=== PATIENT | female | born 2000 | race Caucasian/White ===

== ENCOUNTER 2022-06-14 18:22 | Observation (INO) ==
[2022-06-14] MEDS ORDERED: SODIUM CHLORIDE 0.9% 1000ML 1,000 ML IV ONE (18:56)
[2022-06-14] MEDS ORDERED: ONDANSETRON INJ 2 MG/ML 2 ML VIAL IV STA (18:56)
[2022-06-14] MEDS: MoRPHine SULFATE 4 MG/ML 1 ML CARP\\VIAL IV STA (19:11)
[2022-06-14 19:22] LABS: Basophils # (auto) 0.08 K/uL (0-0.2); Basophils % (auto) 0.4 %; Eosinophils # (auto) 0.15 K/uL (0-0.50); Eosinophils % (auto) 0.7 %; Hematocrit (blood only) 37.3 % (34.1-44.9); Hemoglobin 12.3 g/dl (12.0-16.0); Immature Granulocytes # (auto) 0.19 K/uL (0.00-0.02); Immature Granulocytes % (auto) 0.9 %; Lymphocytes # (auto) 1.74 K/uL (1.2-3.4); Mean Corpuscular Hemoglobin 30.4 pg (25.0-34.0); Mean Corpuscular Volume 92.3 fL (80.0-100.0); Mean Platelet Volume 9.3 fL (9.4-12.3); Monocytes # (auto) 1.25 K/uL (0.24-0.82); Monocytes % (auto) 5.8 %; Neutrophils # (auto) 18.32 K/uL (1.4-6.5); Neutrophils % (auto) 84.2 %; Platelet Count 333 K/uL (130-400); RDW Coefficient of Variation 13.1 % (11.5-14.5); RDW Standard Deviation 43.9 fL (36.4-46.3); Red Blood Count 4.04 M/uL (3.93-5.22); White Blood Count 21.73 K/ul (4.8-10.8)
[2022-06-14 19:46] LABS: BUN Creatinine Ratio 14.3 (10-20); Calcium 9.5 mg/dl (8.5-10.1); Creatinine Clr Calc Pharmacy 112.7 ml/min; Est GFR (African American) 149.7 ml/min; Est GFR (Non-African American) 129.1 ml/min; Potassium 3.4 mmol/L (3.5-5.1)
[2022-06-14] MEDS ORDERED: MoRPHine SULFATE 4 MG/ML 1 ML CARP\\VIAL IV STA (20:18)
[2022-06-14] MEDS ORDERED: OPTIRAY 350 100ml IV ONE (20:32)
[2022-06-14] MEDS ORDERED: HYDROmorphone INJ 0.5 MG/0.5 ML SYR IV STA (21:22)
--- NOTE | 2022-06-14 21:41 | CT Scan Report ---
CT SCAN OF THE PELVIS WITH IV CONTRAST CLINICAL HISTORY: Pelvic infection. Assess for abscess. COMPARISON STUDY: No priors. TECHNIQUE: Following the IV administration of 87 cc of Optiray 350, CT scan of the pelvis is perform ed from the pelvic inlet to the proximal femora. Images are reviewed in the axial, sagittal, and quinten nal planes. IV contrast was administered without complication. A dose lowering technique was utilize d adhering to the principles of ALARA. CT DOSE: 270.97 mGy.cm FINDINGS: The bladder, uterus, and adnexa are normal as visualized noting bilateral ovarian follicles. There is free fluid in the cul-de-sac. Imaged portions of the small bowel and colon are normal in caliber. Mo derate fecal retention is noted throughout the imaged colon. A normal appendix is seen in the right l ower quadrant. The iliac vessels are patent bilaterally. Prominent left pelvic sidewall and internal iliac chain nodes measure up to 1.0 cm in short axis. These are likely reactive. There is extensive soft tissue inflammation identified in the left groin with overlying dermal thicke fidel. This is consistent with cellulitis. There is a hyperemic and necrotic lymph node in the left gr oin seen on image #513. The necrotic component/developing fluid collection measures 3.8 x 3.1 x 2.4 c m as seen on image #522. Additional prominent hyperemic lymph nodes are seen in the left groin. Infla mmation extends into the perineum/vulva bilaterally (left greater than right). No deep perineal soft tissue gas is seen. The bony pelvis is intact. No lytic or blastic lesion is seen. The hips and sacroiliac joints are nor mal. There is myositis of the left adductor musculature. IMPRESSION: 1. Cellulitis of the left groin extending into the vulva and perineal soft tissues bilaterally. 2. There is a necrotic lymph node in the left groin with a 3.8 cm loculation of necrotic fluid/develo ping abscess. 3. Prominent left iliac chain and pelvic sidewall lymph nodes are likely reactive. 4. Free fluid in the cul-de-sac is likely within physiologic limits. 5. No perineal soft tissue gas is seen. 6. There is myositis of the left adductor musculature. ACT 112: Negative or not required by law. Electronically signed by: Werner Craft M.D. 06/14/2022 9:38 PM
[2022-06-14] MEDS ORDERED: VANCOMYCIN CONSULT ACTIVE PRN (21:53)
[2022-06-14] MEDS ORDERED: cefTRIAXone SODIUM 2,000 MG/70 ML BAG IV STA (21:53)
[2022-06-14] MEDS ORDERED: LORazepam 0.5 MG TAB PO PRN (21:53)
[2022-06-14] MEDS ORDERED: VANCOMYCIN HCL 1,000 MG in SODIUM CHLORIDE 0.9% 500 ML IV ONE (21:53)
--- NOTE | 2022-06-14 22:31 | History & Physical Report ---
Date of Service June 14, 2022 Assessment & Plan (1) LGV (lymphogranuloma venereum): Plan: Currently patient was being treated outpatient for the suspected diagnosis of LGV. However more common in patients who are men who have sex with men, and tropical climates. More unlikely this is not the diagnosis at this time as patient is also been screened and found to be chlamydia negative. At this time the suspected necrotic lymph node, in the groin is not in my expertise to thoroughly I+D this area. Therefore I am placing a general surgery consult to evaluate the patient as well. In the meantime for preventing sepsis I will start the patient on IV Rocephin, metronidazole and vancomycin. 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 She had gone home during the holiday and was sexually active, and noted an increase in left groin pain afterwards. She then shaved in that area several days ago, and noted increasing pain and discomfort over the left groin. 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 However over the last several days symptoms became progressively worse She denies fevers, chills, SOB or chest pain Patient History Social History Smoking Status: Never smoker Feels Safe at Home: Yes OB History G0 [employer] History Recent sexual activity, no on control. Planning to start tomorrow Review of Systems All systems reviewed & are unremarkable except as noted in HPI & below Physical Exam Constitutional: WD/WN, vitals as above Respiratory: normal respiratory effort, lungs clear to auscultation Cardiovascular: RRR, no murmur, no edema Gastrointestinal (Abdomen): normal bowel sounds, soft, nontender, no hepatosplenomegaly Genitourinary: Erythematous over left groin extending down into left labia, firm, tender Right groin and labia majora normal Patient declined further pelvic and speculum exam, due to discomfort Results & Data ([facility]) Vital Signs (Past 12 Hours) Vital Signs Temp Pulse Pulse Resp BP BP Pulse Ox 06/14/22 22:01 70 20 98 06/14/22 21:32 15 98 06/14/22 20:10 97 H 19 06/14/22 20:00 125 H 21 06/14/22 19:50 109 H 23 06/14/22 19:40 85 15 100 06/14/22 19:30 98 H 23 100 06/14/22 19:20 99 H 15 100 06/14/22 19:10 96 H 15 100 06/14/22 19:00 114 H 17 06/14/22 19:00 145/95 H 06/14/22 18:50 104 H 22 100 06/14/22 18:49 109 H 17 06/14/22 18:49 149/92 H 06/14/22 19:32 107 H 20 97 06/14/22 18:50 107 H 20 149/92 H 100 06/14/22 18:25 36.8 C 117 H 18 133/84 100 O2 Del Method 06/14/22 22:01 Room Air 06/14/22 21:32 06/14/22 20:10 06/14/22 20:00 06/14/22 19:50 06/14/22 19:40 06/14/22 19:30 06/14/22 19:20 06/14/22 19:10 06/14/22 19:00 06/14/22 19:00 06/14/22 18:50 06/14/22 18:49 06/14/22 18:49 06/14/22 19:32 Room Air 06/14/22 18:50 Room Air 06/14/22 18:25 Room Air Laboratory Results Laboratory Results WBC 21.73 K/ul (4.8-10.8) H 06/14/22 19:08 RBC 4.04 M/uL (3.93-5.22) 06/14/22 19:08 Hgb 12.3 g/dl (12.0-16.0) 06/14/22 19:08 Hct 37.3 % (34.1-44.9) 06/14/22 19:08 MCV 92.3 fL (80.0-100.0) 06/14/22 19:08 MCH 30.4 pg (25.0-34.0) 06/14/22 19:08 MCHC 33.0 g/dL (32.0-36.0) 06/14/22 19:08 RDW Std Deviation 43.9 fL (36.4-46.3) 06/14/22 19:08 RDW Coeff of Jerardo 13.1 % (11.5-14.5) 06/14/22 19:08 Plt Count 333 K/uL (130-400) 06/14/22 19:08 MPV 9.3 fL (9.4-12.3) L 06/14/22 19:08 Immature Gran % (Auto) 0.9 % 06/14/22 19:08 Neut % (Auto) 84.2 % 06/14/22 19:08 Lymph % (Auto) 8.0 % 06/14/22 19:08 Shackelford % (Auto) 5.8 % 06/14/22 19:08 Eos % (Auto) 0.7 % 06/14/22 19:08 Baso % (Auto) 0.4 % 06/14/22 19:08 Neut # (Auto) 18.32 K/uL (1.4-6.5) H 06/14/22 19:08 Lymph # (Auto) 1.74 K/uL (1.2-3.4) 06/14/22 19:08 Shackelford # (Auto) 1.25 K/uL (0.24-0.82) H 06/14/22 19:08 Eos # (Auto) 0.15 K/uL (0-0.50) 06/14/22 19:08 Baso # (Auto) 0.08 K/uL (0-0.2) 06/14/22 19:08 Immature Gran # (Auto) 0.19 K/uL (0.00-0.02) H 06/14/22 19:08 Sodium 139 mmol/L (136-145) 06/14/22 19:08 Potassium 3.4 mmol/L (3.5-5.1) L 06/14/22 19:08 Chloride 104 mmol/L (98-107) 06/14/22 19:08 Carbon Dioxide 24 mmol/L (21-32) 06/14/22 19:08 Anion Gap 11 (3-11) 06/14/22 19:08 BUN 9 mg/dl (6-23) 06/14/22 19:08 Creatinine 0.63 mg/dl (0.6-1.2) 06/14/22 19:08 Est Cr Clr Drug Dosing 112.7 ml/min 06/14/22 19:08 Est GFR ( Amer) 149.7 ml/min 06/14/22 19:08 Est GFR (Non-Af Amer) 129.1 ml/min 06/14/22 19:08 BUN/Creatinine Ratio 14.3 (10-20) 06/14/22 19:08 Glucose 80 mg/dl (70-99(Fasting)) 06/14/22 19:08 Calcium 9.5 mg/dl (8.5-10.1) 06/14/22 19:08 Impressions Diagnostic Findings Pelvis CT 06/14/22 18:54 CT SCAN OF THE PELVIS WITH IV CONTRAST CLINICAL HISTORY: Pelvic infection. Assess for abscess. COMPARISON STUDY: No priors. TECHNIQUE: Following the IV administration of 87 cc of Optiray 350, CT scan of the pelvis is performed from the pelvic inlet to the proximal femora. Images are reviewed in the axial, sagittal, and coronal planes. IV contrast was administered without complication. A dose lowering technique was utilized adhering to the principles of ALARA. CT DOSE: 270.97 mGy.cm FINDINGS: The bladder, uterus, and adnexa are normal as visualized noting bilateral ovarian follicles. There is free fluid in the cul-de-sac. Imaged portions of the small bowel and colon are normal in caliber. Moderate fecal retention is noted throughout the imaged colon. A normal appendix is seen in the right lower quadrant. The iliac vessels are patent bilaterally. Prominent left pelvic sidewall and internal iliac chain nodes measure up to 1.0 cm in short axis. These are likely reactive. There is extensive soft tissue inflammation identified in the left groin with o verlying dermal thickening. This is consistent with cellulitis. There is a hyperemic and necrotic lymph node in the left groin seen on image #513. The necrotic component/developing fluid collection measures 3.8 x 3.1 x 2.4 cm as seen on image #522. Additional prominent hyperemic lymph nodes are seen in the left groin. Inflammation extends into the perineum/vulva bilaterally (left greater than right). No deep perineal soft tissue gas is seen. The bony pelvis is intact. No lytic or blastic lesion is seen. The hips and sacroiliac joints are normal. There is myositis of the left adductor muscula ture. IMPRESSION: 1. Cellulitis of the left groin extending into the vulva and perineal soft tissues bilaterally. 2. There is a necrotic lymph node in the left groin with a 3.8 cm loculation of necrotic fluid/developing abscess. 3. Prominent left iliac chain and pelvic sidewall lymph nodes are likely reactive. 4. Free fluid in the cul-de-sac is likely within physiologic limits. 5. No perineal soft tissue gas is seen. 6. There is myositis of the left adductor musculature. ACT 112: Negative or not required by law. Electronically signed by: Werner Craft M.D. 06/14/2022 9:38 PM
[2022-06-14] MEDS: LACTATED RINGER'S 1,000 ML IV SCH (23:46)
[2022-06-14] MEDS: ACETAMINOPHEN 325 MG TAB PO PRN (23:54)
[2022-06-15] MEDS ORDERED: oxyCODONE/ACETAMINOPHEN 5mg/325mg TAB PO PRN (00:18)
--- NOTE | 2022-06-15 00:26 | Emergency Department Note ---
History of Present Illness General Chief complaint: Infection Stated complaint: INFECTED LYMPH NODE, REF BY URGENT CARE Time Seen by Provider: 06/14/22 18:44 History of Present Illness Provider complaint: Groin pain infected lymph node Onset (ago): week(s) 1 Location: genitals Current Pain Intensity: 9 Quality: + stabbing, + aching, + sharp and + dull Associated symptoms: + rash; no fever/chills 21-year-old female presents emergency department for groin pain and infected lymph node. Patient reports she has left genital and groin pain. Patient states her symptoms began 1 week ago. Patient states that on May 30 she engaged in sexual intercourse with a new partner. Patient states she was intoxicated and is not sure if protection was used. Patient states over the last week her groin and vulvar area became more swollen and red. Patient reports that she did shave her genital and vulvar region on Wednesday which lead to increasing redness and swelling. Patient denies any fevers. She denies any vaginal discharge. Patient states she was seen by [facility] [employer]NA[employer] and placed on antibiotic doxycycline on Wednesday. Patient reports the swelling redness and pain have increased since then so she came to the emergency department. Home Medications Medication Instructions Recorded Confirmed Type bupropion HCl 300 mg 24 hr tablet, 300 mg PO 1XD 06/15/22 06/15/22 History extended release lisdexamfetamine 20 mg capsule 20 mg PO 1XD 06/15/22 06/15/22 History (Vyvanse) Allergies Allergy/AdvReac Type Severity Reaction Status Date / Time pollen extracts Allergy Sneezing Verified 06/15/22 00:03 Past Med/Surg History Medical History No pertinent family history No pertinent past medical history Surgical History No pertinent past surgical history Social History Smoking Status: Never smoker Second Hand Exposure: No; Do You Dip or Chew Tobacco: No; Hx Alcohol Use: No Hx Substance Use: No Preferred Language: Amharic Ethics Instructor Required: No Beliefs That Will Affect Care: None Current Living Situation: Other Current Living Situation Comment: campus; 2 roommates. Other Information That Helps Us Care for You: No Feels Safe at Home: Yes Safety Concerns: Feels Safe At This Time Assistive Devices: None Physical Exam Vital Signs Vital Signs - 24 hr 06/14/22 18:25 06/14/22 18:50 06/14/22 19:32 Temperature 36.8 C Temperature Source Oral Pulse Rate 117 H 107 H Pulse Rate [Apical] 107 H Pulse Rate from SpO2 Sensor Pulse Rhythm Regular Pulse Rhythm [Apical] Regular Pulse Strength [Apical] Normal Respiratory Rate 18 20 20 Respiratory Effort / Characteristics Non-Labored Spontaneous Respiratory Depth Normal Respiratory Pattern Regular Blood Pressure 133/84 Blood Pressure [Right Arm] 149/92 H Blood Pressure Mean 100 Blood Pressure Mean [Right Arm] 111 Pulse Oximetry 100 100 97 Oxygen Delivery Method Room Air Room Air Room Air Sepsis Recent Fever Within 48 Hours No Sepsis New/Unexplained Change in Mental Status No Sepsis Action Taken by Nursing No Action Required 06/14/22 18:49 06/14/22 18:49 06/14/22 18:50 Temperature Temperature Source Pulse Rate 109 H 104 H Pulse Rate [Apical] Pulse Rate from SpO2 Sensor 105 H Pulse Rhythm Pulse Rhythm [Apical] Pulse Strength [Apical] Respiratory Rate 17 22 Respiratory Effort / Characteristics Respiratory Depth Respiratory Pattern Blood Pressure 149/92 H Blood Pressure [Right Arm] Blood Pressure Mean 111 Blood Pressure Mean [Right Arm] Pulse Oximetry 100 Oxygen Delivery Method Sepsis Recent Fever Within 48 Hours Sepsis New/Unexplained Change in Mental Status Sepsis Action Taken by Nursing 06/14/22 19:00 06/14/22 19:00 06/14/22 19:10 Temperature Temperature Source Pulse Rate 114 H 96 H Pulse Rate [Apical] Pulse Rate from SpO2 Sensor 99 H Pulse Rhythm Pulse Rhythm [Apical] Pulse Strength [Apical] Respiratory Rate 17 15 Respiratory Effort / Characteristics Respiratory Depth Respiratory Pattern Blood Pressure 145/95 H Blood Pressure [Right Arm] Blood Pressure Mean 111 Blood Pressure Mean [Right Arm] Pulse Oximetry 100 Oxygen Delivery Method Sepsis Recent Fever Within 48 Hours Sepsis New/Unexplained Change in Mental Status Sepsis Action Taken by Nursing 06/14/22 19:20 06/14/22 19:30 06/14/22 19:40 Temperature Temperature Source Pulse Rate 99 H 98 H 85 Pulse Rate [Apical] Pulse Rate from SpO2 Sensor 95 H 98 H 84 Pulse Rhythm Pulse Rhythm [Apical] Pulse Strength [Apical] Respiratory Rate 15 23 15 Respiratory Effort / Characteristics Respiratory Depth Respiratory Pattern Blood Pressure Blood Pressure [Right Arm] Blood Pressure Mean Blood Pressure Mean [Right Arm] Pulse Oximetry 100 100 100 Oxygen Delivery Method Sepsis Recent Fever Within 48 Hours Sepsis New/Unexplained Change in Mental Status Sepsis Action Taken by Nursing 06/14/22 19:50 06/14/22 20:00 06/14/22 20:10 Temperature Temperature Source Pulse Rate 109 H 125 H 97 H Pulse Rate [Apical] Pulse Rate from SpO2 Sensor Pulse Rhythm Pulse Rhythm [Apical] Pulse Strength [Apical] Respiratory Rate 23 21 19 Respiratory Effort / Characteristics Respiratory Depth Respiratory Pattern Blood Pressure Blood Pressure [Right Arm] Blood Pressure Mean Blood Pressure Mean [Right Arm] Pulse Oximetry Oxygen Delivery Method Sepsis Recent Fever Within 48 Hours Sepsis New/Unexplained Change in Mental Status Sepsis Action Taken by Nursing 06/14/22 21:32 06/14/22 21:40 Temperature Temperature Source Pulse Rate Pulse Rate [Apical] Pulse Rate from SpO2 Sensor 106 H 102 H Pulse Rhythm Pulse Rhythm [Apical] Pulse Strength [Apical] Respiratory Rate 15 Respiratory Effort / Characteristics Respiratory Depth Respiratory Pattern Blood Pressure Blood Pressure [Right Arm] Blood Pressure Mean Blood Pressure Mean [Right Arm] Pulse Oximetry 98 97 Oxygen Delivery Method Sepsis Recent Fever Within 48 Hours Sepsis New/Unexplained Change in Mental Status Sepsis Action Taken by Nursing Physical Exam GENERAL: Patient is crying due to pain. CV: Tachycardic rate, regular rhythm, normal heart sounds and intact distal pulses. There is no peripheral edema. Palpable radial pulses bue. PULM/CHEST: Effort normal and breath sounds normal. No respiratory distress. No stridor. She has no wheezes. She has no rales. ABD: The abdomen is soft. : Conducted with female nursing marbleizing machine tender Maria Eugenia at bedside. The patient has an erythematous vulvar area that radiates into her suprapubic area. The area is warm to touch painful to touch and feels fluctuant and hard in areas. The swelling and erythema extend down to superior area just above the left labia however does not extend down into the left labia. LYMPH: Left inguinal adenopathy. Course Course 1843: The patient was evaluated in room B7. A complete history and physical exam was performed Cardiac monitoring: An order was placed for continuous cardiac monitoring. The monitor shows a rate of 100 with sinus rhythm Concern for abscess versus cellulitis. No necrotic black lesion lower concern for Ian's. Patient will be ordered labs pain medication IV fluids. Debating versus CT versus ultrasound to leaning towards CT to see if there is a true abscess there and to measure the dimensions of the potential abscess. Will contact [employer] and see if they have a preference of CT versus ultrasound. 1859: Spoke with [facility] [employer] MANAGER Dr. Mancera who states she is okay with the CT being conducted on this patient. 2100: External medical records reviewed, nurse outreach case manager Lola was able to obtain outpatient [employer] records from [employer] system. Patient was seen in the emergency department for days ago on June 10, [address] 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 0: Vital signs stable. Labs show leukocytosis of 21.7. CT shows cellulitis of the left groin extending into the lower perianal soft tissues bilaterally. There is a necrotic lymph node in the left groin within 3.8 cm loculation of necrotic fluid/developing abscess and prominent left iliac chain and pelvic sidewall lymph nodes. Patient is required multiple doses of analgesia due to her pain. Discussed the case with Dr. Mancera who states she will evaluate the patient for admission and she will place orders for antibiotics. Administered Medications Acetaminophen (Acetaminophen 325 Mg Tab) 650 mg PO Q4H PRN PRN Reason: Pain or Fever Stop: 07/14/22 21:52 Last Admin: 06/14/22 23:54 Dose: 650 mg Documented By: JORDAN Lactated Ringer's (Lr) 1,000 mls @ 125 mls/hr IV .Q8H OPAL Stop: 07/14/22 21:59 Last Admin: 06/14/22 23:46 Dose: 125 mls/hr Documented By: JORDNA Vancomycin HCl 1,000 mg/ (Sodium Chloride) 520 mls @ 200 mls/hr IV NOW ONE Stop: 06/15/22 00:28 Last Admin: 06/14/22 22:30 Dose: 200 mls/hr Documented By: BERTA Discontinued Medications Hydromorphone HCl (Hydromorphone Inj 0.5 Mg/0.5 Ml Syr) 0.5 mg IV NOW STA Stop: 06/14/22 21:23 Last Admin: 06/14/22 21:25 Dose: 0.5 mg Documented By: BERTA Sodium Chloride (Nss 1000ml) 1,000 mls @ 999 mls/hr IV .Q1H1M ONE Stop: 06/14/22 19:56 Last Infusion: 06/14/22 20:16 Dose: 0 mls/hr Documented By: Admin: 06/14/22 19:11 Dose: 999 mls/hr Documented By: BERTA Ceftriaxone Sodium (Rocephin) 2,000 mg in 70 mls @ 140 mls/hr IV NOW STA Stop: 06/14/22 22:22 Last Infusion: 06/14/22 22:44 Dose: 0 mls/hr Documented By: Admin: 06/14/22 22:06 Dose: 140 mls/hr Documented By: BERTA Ioversol (Optiray 350 100ml) 87 ml IV ONCE ONE Stop: 06/14/22 20:33 Last Admin: 06/14/22 20:32 Dose: 87 ml Documented By: BELINDA Morphine Sulfate (Morphine Sulfate 4 Mg/Ml 1 Ml Carp\Vial) 4 mg IV NOW STA Stop: 06/14/22 18:57 Last Admin: 06/14/22 19:11 Dose: 4 mg Documented By: Admin: 06/14/22 19:11 Dose: 4 mg Documented By: BERTA Morphine Sulfate (Morphine Sulfate 4 Mg/Ml 1 Ml Carp\Vial) 4 mg IV NOW STA Stop: 06/14/22 20:19 Last Admin: 06/14/22 20:20 Dose: 4 mg Documented By: BERTA Ondansetron HCl (Ondansetron Inj 2 Mg/Ml 2 Ml Vial) 4 mg IV NOW STA Stop: 06/14/22 18:57 Last Admin: 06/14/22 19:11 Dose: 4 mg Documented By: BERTA Medical Decision Making Laboratory Data Attestation: I reviewed the patient's lab results. 06/14/22 19:08 06/14/22 19:08 Lab Results 06/14/22 06/14/22 Range/Units 19:08 19:08 WBC 21.73 H (4.8-10.8) K/ul RBC 4.04 (3.93-5.22) M/uL Hgb 12.3 (12.0-16.0) g/dl Hct 37.3 (34.1-44.9) % MCV 92.3 (80.0-100.0) fL MCH 30.4 (25.0-34.0) pg MCHC 33.0 (32.0-36.0) g/dL RDW Std Deviation 43.9 (36.4-46.3) fL RDW Coeff of Jerardo 13.1 (11.5-14.5) % Plt Count 333 (130-400) K/uL MPV 9.3 L (9.4-12.3) fL Immature Gran % (Auto) 0.9 % Neut % (Auto) 84.2 % Lymph % (Auto) 8.0 % Burke % (Auto) 5.8 % Eos % (Auto) 0.7 % Baso % (Auto) 0.4 % Neut # (Auto) 18.32 H (1.4-6.5) K/uL Lymph # (Auto) 1.74 (1.2-3.4) K/uL Burke # (Auto) 1.25 H (0.24-0.82) K/uL Eos # (Auto) 0.15 (0-0.50) K/uL Baso # (Auto) 0.08 (0-0.2) K/uL Immature Gran # (Auto) 0.19 H (0.00-0.02) K/uL Sodium 139 (136-145) mmol/L Potassium 3.4 L (3.5-5.1) mmol/L Chloride 104 (98-107) mmol/L Carbon Dioxide 24 (21-32) mmol/L Anion Gap 11 (3-11) BUN 9 (6-23) mg/dl Creatinine 0.63 (0.6-1.2) mg/dl Est Cr Clr Drug Dosing 112.7 ml/min Est GFR ( Amer) 149.7 ml/min Est GFR (Non-Af Amer) 129.1 ml/min BUN/Creatinine Ratio 14.3 (10-20) Glucose 80 (70-99(Fasting)) mg/dl Calcium 9.5 (8.5-10.1) mg/dl Imaging Data Radiologist's Impression: Pelvis CT 06/14/22 18:54 CT SCAN OF THE PELVIS WITH IV CONTRAST CLINICAL HISTORY: Pelvic infection. Assess for abscess. COMPARISON STUDY: No priors. TECHNIQUE: Following the IV administration of 87 cc of Optiray 350, CT scan of the pelvis is performed from the pelvic inlet to the proximal femora. Images are reviewed in the axial, sagittal, and coronal planes. IV contrast was admini stered without complication. A dose lowering technique was utilized adhering to the principles of ALARA. CT DOSE: 270.97 mGy.cm FINDINGS: The bladder, uterus, and adnexa are normal as visualized noting bilateral ovarian follicles. There is free fluid in the cul-de-sac. Imaged portions of the small bowel and colon are normal in caliber. Moderate fecal retention is noted throughout the imaged colon. A normal appendix is seen in the right lower quadrant. The iliac vessels are patent bilaterally. Prominent left pelvic s idewall and internal iliac chain nodes measure up to 1.0 cm in short axis. These are likely reactive. There is extensive soft tissue inflammation identified in the left groin with overlying dermal thickening. This is consistent with cellulitis. There is a hyperemic and necrotic lymph node in the left groin seen on image #513. The necrotic component/developing fluid collection measures 3.8 x 3.1 x 2.4 cm as seen on image #522. Additional prominent hyperemic lymph nodes are seen in the left groin. Inflammation extends into the perineum/vulva bilaterally (left greater than right). No deep perineal soft tissue gas is seen. The bony pelvis is intact. No lytic or blastic lesion is seen. The hips and sacroiliac joints are normal. There is myositis of the left adductor musculature. IMPRESSION: 1. Cellulitis of the left groin extending into the vulva and perineal soft tissues bilaterally. 2. There is a necrotic lymph node in the left groin with a 3.8 cm loculation of necrotic fluid/developing abscess. 3. Prominent left iliac chain and pelvic sidewall lymph nodes are likely reactive. 4. Free fluid in the cul-de-sac is likely within physiologic limits. 5. No perineal soft tissue gas is seen. 6. There is myositis of the left adductor musculature. ACT 112: Negative or not required by law. Electronically signed by: Werner Craft M.D. 06/14/2022 9:38 PM [facility] [place] Narrative 1844: The patient was evaluated in room B7. A complete history and physical exam was performed Cardiac monitoring: An order was placed for continuous cardiac monitoring. The monitor shows a rate of 100 with sinus rhythm Concern for abscess versus cellulitis. No necrotic black lesion lower concern for Ian's. Patient will be ordered labs pain medication IV fluids. Debating versus CT versus ultrasound to leaning towards CT to see if there is a true abscess there and to measure the dimensions of the potential abscess. Will contact [employer] MANAGER and see if they have a preference of CT versus ultrasound. 1859: Spoke with [facility] [employer] MANAGER Dr. Mancera who states she is okay with the CT be ing conducted on this patient. 2100: External medical records reviewed, nurse outreach case manager Lola was able to obtain outpatient [employer] MA[employer] records from [employer]. Patient was seen in the emergency department for days ago on June 10, [address] 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 2199: Vital signs stable. Labs show leukocytosis of 21.7. CT shows cellulitis of the left groin extending into the lower perianal soft tissues bilaterally. There is a necrotic lymph node in the left groin within 3.8 cm loculation of necrotic fluid/developing abscess and prominent left iliac chain and pelvic sidewall lymph nodes. Patient is required multiple doses of analgesia due to her pain. Discussed the case with Dr. Mancera who states she will evaluate the patient for admission and she will place orders for antibiotics. Impression & Plan LGV (lymphogranuloma venereum) Discharge Plan Visit Data Chief Complaint: Infection Stated Complaint: INFECTED LYMPH NODE, REF BY URGENT CARE ED Provider: Andriy Aguiar Discharge Problem: LGV (lymphogranuloma venereum) Patient Disposition: Admitted As Inpatient Discharge Instructions Interventions: ED Discharge Assessment Last Done: 06/14/22 23:06
[2022-06-15] MEDS ORDERED: metroNIDAZOLE 500 MG/100 ML BAG IV SCH (01:00)
[2022-06-15] MEDS: KETOROLAC 30 MG/ML VIAL IV PRN ×2 (01:17→08:31)
[2022-06-15] MEDS ORDERED: VANCOMYCIN HCL 1,000 MG in SODIUM CHLORIDE 0.9% 250 ML IV SCH (02:30)
[2022-06-15] MEDS: ACETAMINOPHEN 325 MG TAB PO PRN ×2 (05:38→19:37)
[2022-06-15 06:25] LABS: Basophils # (auto) 0.06 K/uL (0-0.2); Basophils % (auto) 0.4 %; Eosinophils % (auto) 1.2 %; Hematocrit (blood only) 31.3 % (34.1-44.9); Hemoglobin 10.5 g/dl (12.0-16.0); Immature Granulocytes # (auto) 0.22 K/uL (0.00-0.02); Immature Granulocytes % (auto) 1.3 %; Lymphocytes # (auto) 1.76 K/uL (1.2-3.4); Lymphocytes % (auto) 10.3 %; Mean Corpuscular Hemoglobin 30.9 pg (25.0-34.0); Mean Corpuscular Hgb Conc 33.5 g/dL (32.0-36.0); Mean Corpuscular Volume 92.1 fL (80.0-100.0); Mean Platelet Volume 9.5 fL (9.4-12.3); Monocytes # (auto) 1.03 K/uL (0.24-0.82); Neutrophils # (auto) 13.83 K/uL (1.4-6.5); Neutrophils % (auto) 80.8 %; Platelet Count 280 K/uL (130-400); RDW Coefficient of Variation 13.2 % (11.5-14.5); RDW Standard Deviation 44.6 fL (36.4-46.3)
--- NOTE | 2022-06-15 06:30 | Surgery Consultation ---
Date of Consultation June 15, 2022 Assessment & Plan (1) Abscess of left groin: Patient will require incision and drainage We will also culture the area and try to biopsy some tissue This will be done in the operating room hopefully this morning sometime She will likely require drain postoperatively Infectious disease consult may be helpful for outpatient care and management of her antibiotics I suspect she will be in the hospital for 1-2 additional days until we can isolate the organisms I discussed this with her mother History of Present Illness Attending Physician: Rakel Mancera MD, PhD History of Present Illness 21-year-old female who developed infection in the left inguinal area this may have been 7 to 10 days ago and then was placed on doxycycline over the past 3 to 4 days with worsening She underwent CT scan of the pelvis showing an abscess in the left inguinal area likely involving an inguinal lymph node Allergies Allergy/AdvReac Type Severity Reaction Status Date / Time pollen extracts Allergy Sneezing Verified 06/15/22 00:03 Home Medications Medication Instructions Recorded Confirmed Type bupropion HCl 300 mg 24 hr tablet, 300 mg PO 1XD 06/15/22 06/15/22 History extended release lisdexamfetamine 20 mg capsule 20 mg PO 1XD 06/15/22 06/15/22 History (Vyvanse) Patient History Medical History No pertinent family history No pertinent past medical history Surgical History No pertinent past surgical history Social History Smoking Status: Never smoker Second Hand Exposure: No; Do You Dip or Chew Tobacco: No; Hx Alcohol Use: No Hx Substance Use: No Preferred Language: Botswanan Type Casting Machine Operator Required: No Beliefs That Will Affect Care: None Current Living Situation: Other Current Living Situation Comment: campus; 2 roommates. Other Information That Helps Us Care for You: No Feels Safe at Home: Yes Safety Concerns: Feels Safe At This Time Assistive Devices: None Review of Systems Review of Systems: All systems reviewed & are unremarkable except as noted in HPI & below Physical Exam Physical Exam: Left inguinal area shows significant swelling and tenderness with mild erythema and some skin blistering Very tender Constitutional: well nourished; no acute distress Eyes: + anicteric sclerae Respiratory: normal respiratory effort; no respiratory distress Cardiovascular: Rate/Rhythm: regular rate Gastrointestinal (Abdomen): Inspection/Auscultation: abdomen not distended Musculoskeletal: Head/Neck/Chest: head atraumatic Skin: no rashes, warm and dry Neurologic: awake Psychiatric: Orientation: alert Results & Data ([facility]) Vital Signs (Past 12 Hours) Vital Signs Temp Pulse Pulse Pulse Resp BP BP 06/15/22 05:54 118/71 06/15/22 05:39 36.7 C 76 16 107/54 L 06/14/22 23:45 06/15/22 00:42 37.5 C 06/14/22 23:58 37.6 C H 95 H 18 121/78 06/14/22 22:20 104 H 14 06/14/22 22:10 103 H 13 06/14/22 22:06 105 H 17 06/14/22 22:06 124/80 06/14/22 21:40 06/14/22 22:01 70 20 06/14/22 21:32 15 06/14/22 20:10 97 H 19 06/14/22 20:00 125 H 21 06/14/22 19:50 109 H 23 06/14/22 19:40 85 15 06/14/22 19:30 98 H 23 06/14/22 19:20 99 H 15 06/14/22 19:10 96 H 15 06/14/22 19:00 114 H 17 06/14/22 19:00 145/95 H 06/14/22 18:50 104 H 22 06/14/22 18:49 109 H 17 06/14/22 18:49 149/92 H 06/14/22 19:32 107 H 20 06/14/22 18:50 107 H 20 149/92 H Pulse Ox O2 Del Method 06/15/22 05:54 06/15/22 05:39 100 Room Air 06/14/22 23:45 Room Air 06/15/22 00:42 06/14/22 23:58 100 Room Air 06/14/22 22:20 06/14/22 22:10 06/14/22 22:06 06/14/22 22:06 06/14/22 21:40 97 06/14/22 22:01 98 Room Air 06/14/22 21:32 98 06/14/22 20:10 06/14/22 20:00 06/14/22 19:50 06/14/22 19:40 100 06/14/22 19:30 100 06/14/22 19:20 100 06/14/22 19:10 100 06/14/22 19:00 06/14/22 19:00 06/14/22 18:50 100 06/14/22 18:49 06/14/22 18:49 06/14/22 19:32 97 Room Air 06/14/22 18:50 100 Room Air PG Care Time/CCT Total # of Minutes Spent Total Time Spent with Patient: Total time spent is greater than 50% in coordination of care (as documented) at patient's floor/unit and/or counseling patient: Coding Level of Care Code INP/OBS CONSULT LVL 3, 45 MIN Diagnoses Abscess of left groin L02.214
[2022-06-15] MEDS: LACTATED RINGER'S 1,000 ML IV SCH ×2 (07:10→19:40)
--- NOTE | 2022-06-15 07:25 | Anesthesiology Consultation ---
Date of Service June 15, 2022 Assessment & Plan (1) Encounter for pre-operative examination: Chart Review Chart Review: cutter aluminum sheet initiated History Surgery Operation Date: 06/15/22 07:00 Proposed Procedures p Incision and Drainage Culture Left Groin Abscess - Nakul Tadeo MD, FACS Height/Weight Height: 5 ft 2 in Weight: 50.2 kg Allergies Allergy/AdvReac Type Severity Reaction Status Date / Time pollen extracts Allergy Sneezing Verified 06/15/22 00:03 Medications Home Medications Medication Instructions Recorded Confirmed Last Taken bupropion HCl 300 mg 24 hr tablet, 300 mg PO 1XD 06/15/22 06/15/22 06/13/22 extended release lisdexamfetamine 20 mg capsule 20 mg PO 1XD 06/15/22 06/15/22 06/13/22 (Vyvanse) Active Medications Generic Name Dose Route Start Last Admin Trade Name Freq PRN Reason Stop Dose Admin Acetaminophen 650 mg 06/14/22 21:53 06/15/22 05:38 Acetaminophen 325 Mg Tab PO 07/14/22 21:52 650 mg Q4H PRN Administration Pain or Fever Lactated Ringer's 1,000 mls @ 125 mls/hr 06/14/22 22:00 06/15/22 07:10 Lr IV 07/14/22 21:59 125 mls/hr .Q8H OPAL Administration Metronidazole 500 mg in 100 mls @ 100 mls/hr 06/15/22 01:00 06/15/22 02:55 Flagyl IV 06/25/22 00:59 Infused Q24H OPAL Infusion Vancomycin HCl 1,000 mg/ 270 mls @ 200 mls/hr 06/15/22 02:30 06/15/22 04:29 Sodium Chloride IV 06/25/22 02:29 Infused Q12H OPAL Infusion Protocol Ketorolac Tromethamine 30 mg 06/15/22 00:18 06/15/22 01:17 Ketorolac 30 Mg/Ml Vial IV 06/20/22 00:17 30 mg Q6H PRN Administration Pain Miscellaneous 1 each 06/15/22 01:00 06/15/22 00:57 Vyvanse~Order Awaiting Action N/A 07/15/22 00:59 Not Given QS OPAL Past Medical History Medical History No pertinent family history No pertinent past medical history Past Surgical History Surgical History No pertinent past surgical history Social History Smoking Status: Never smoker Do You Dip or Chew Tobacco: No Hx Alcohol Use: No Hx Substance Use: No substance use type: does not use Physical Exam Vital Signs Last Vital Signs Temp 98.1 F 06/15/22 05:39 Pulse 76 06/15/22 05:39 Resp 16 06/15/22 05:39 BP 118/71 06/15/22 05:54 Pulse Ox 100 06/15/22 05:39 O2 Del Method 06/15/22 05:39 Testing Laboratory Results 06/15/22 05:57 06/14/22 19:08
[2022-06-15 08:54] LABS: Creatinine Clr Calc Pharmacy 131.4 ml/min; Est GFR (African American) > 150.0 ml/min; Est GFR (Non-African American) 135.8 ml/min
[2022-06-15] MEDS: buPROPion XL 300 MG TABCR PO SCH (10:19)
--- NOTE | 2022-06-15 10:46 | Pharmacy Report ---
Pharmacy PK ABX Note - Date of Service June 15, 2022 - Assessment and Plan Assessment 21 year old F receiving empiric vancomycin, ceftriaxone, and metronidazole for treatment of left groin abscess. I&D planned for today w/ cultures likely to follow. Recently started on doxycycline as an outpatient, but symptoms have become progressively worse over last several days. Hepatitis B/C and HIV testing pending. Day # 1 of antimicrobial therapy. Plan Vancomycin * Loading dose: 1000 mg IV x 1 * Maintenance dose: 750 mg IV every 8 hours * Regimen is predicted to achieve target AUC/KAYODE of 400-600 mg/L.hr * Random level ordered for: 06/16/22 Ceftriaxone * 2 g IV q24h - appropriate Metronidazole * 500 mg IV q8h - appropriate Pharmacy will continue to follow and will adjust dose/frequency as necessary. Thank you. Pharmacy has transitioned to AUC monitoring for vancomycin. AUC/KAYODE is the preferred PK/PD target and is associated with decreased risk of nephrotoxicity compared to traditional trough targets.
[2022-06-15 10:55] LABS: Pregnancy Test, Urine Negative (Negative)
[2022-06-15] MEDS: metroNIDAZOLE 500 MG/100 ML BAG IV SCH ×2 (12:23→20:22)
[2022-06-15] MEDS ORDERED: MIDAZOLAM HCL 1 MG/ML 2ML VIAL ONE (13:10)
[2022-06-15] MEDS ORDERED: PROPOFOL IV EMULSION 10 MG/ML 20 ML VIAL IV ONE (13:10)
[2022-06-15] MEDS ORDERED: fentaNYL citrate 100 MCG/2 ML VIAL ONE (13:10)
[2022-06-15] MEDS ORDERED: LIDOCAINE 2% MPF LOCAL 5 ML VIAL INFIL ONE (13:10)
[2022-06-15] MEDS ORDERED: ONDANSETRON INJ 2 MG/ML 2 ML VIAL ONE (13:10)
[2022-06-15] MEDS ORDERED: fentaNYL citrate 100 MCG/2 ML VIAL IV PRN (13:16)
[2022-06-15] MEDS ORDERED: KETOROLAC 30 MG/ML VIAL IV PRN (13:16)
[2022-06-15] MEDS ORDERED: ATROPINE SULFATE 0.1 MG/ML 10ML SYR IV PRN (13:16)
[2022-06-15] MEDS ORDERED: ONDANSETRON INJ 2 MG/ML 2 ML VIAL IV PRN ×2 (13:16→17:11)
[2022-06-15] MEDS ORDERED: PROMETHAZINE HCL 6.25 MG in SODIUM CHLORIDE 0.9% 50 ML IV PRN (13:16)
--- NOTE | 2022-06-15 13:18 | Gynecologic Progress Note ---
Date of Service June 15, 2022 Assessment & Plan Admission and Anticipated Discharge Date Admission Date: June 14, 2022 Subjective Late entry from 10:50 Patient is seen and examined She was sleeping in her bed with parents sitting at bed side Mom waked her up She is awaiting for surgery Feels the same VSS Afebrile Left groin red, indurated, draining small fluid Left labia majora edematous with no lesion Continue with IV AB until surgery Will transfer her care to G Surgery Results & Data ([facility]) Vital Signs (Past 12 Hours) Vital Signs Temp Pulse Pulse Resp BP BP Pulse Ox 06/15/22 12:23 37.3 C 94 H 18 124/81 95 06/15/22 08:15 37.2 C 90 16 112/64 99 06/15/22 05:54 118/71 06/15/22 05:39 36.7 C 76 16 107/54 L 100 O2 Del Method 06/15/22 12:23 Room Air 06/15/22 08:15 Room Air 06/15/22 05:54 06/15/22 05:39 Room Air
[2022-06-15] MEDS: VANCOMYCIN HCL 750 MG in SODIUM CHLORIDE 0.9% 250 ML IV SCH ×2 (13:27→20:24)
[2022-06-15] MEDS ORDERED: BUPIVACAINE 0.5 % 5 MG/1 ML MPF 30ML VIAL ONE (14:09)
--- NOTE | 2022-06-15 14:31 | Post Operative Brief Note ---
PG Immediate Post Op with CF Date of Surgery June 15, 2022 Pre & Post Diagnosis Operation Date: 06/15/22 07:00 Pre-Op Diagnosis: Left Groin Abcsess Post-Op Diagnosis: Left Groin Abcsess I identified the patient and participated in the time-out.: Yes Procedure Operation Date: 06/15/22 07:00 Actual Procedures p Incision and Drainage Culture Left Groin Abscess(Left) - Nakul Tadeo MD, FACS Surgeon Nakul Tadeo MD, FACS Moulder Operator Debbie Gil Estimated Blood Loss 5 Findings Consistent with Post-Op Diagnosis 5 cm deep left groin abscess Specimens Specimen Description: Culture 1: Left Groin Abscess A. Left Groin Tissue
[2022-06-15] MEDS ORDERED: ACETAMINOPHEN 1,000 MG/100 ML VIAL IV ONE (14:32)
--- NOTE | 2022-06-15 15:24 | Anesthesiology Progress Note ---
Date of Service June 15, 2022 Anesthesia Post Procedure Vital Signs Vital Signs: Temp Pulse Pulse Pulse Resp BP BP 06/15/22 15:15 85 14 113/66 06/15/22 14:55 82 15 120/72 06/15/22 15:05 37.1 C 85 14 119/64 06/15/22 14:45 94 H 17 121/73 06/15/22 14:39 36.5 C 85 19 114/80 06/15/22 12:23 37.3 C 94 H 18 06/15/22 08:15 37.2 C 90 16 112/64 06/15/22 05:54 06/15/22 05:39 36.7 C 76 16 06/14/22 23:45 06/15/22 00:42 37.5 C 06/14/22 23:58 37.6 C H 95 H 18 06/14/22 22:20 104 H 14 06/14/22 22:10 103 H 13 06/14/22 22:06 105 H 17 06/14/22 22:06 124/80 06/14/22 21:40 06/14/22 22:01 70 20 06/14/22 21:32 15 06/14/22 20:10 97 H 19 06/14/22 20:00 125 H 21 06/14/22 19:50 109 H 23 06/14/22 19:40 85 15 06/14/22 19:30 98 H 23 06/14/22 19:20 99 H 15 06/14/22 19:10 96 H 15 06/14/22 19:00 114 H 17 06/14/22 19:00 145/95 H 06/14/22 18:50 104 H 22 06/14/22 18:49 109 H 17 06/14/22 18:49 149/92 H 06/14/22 19:32 107 H 20 06/14/22 18:50 107 H 20 06/14/22 18:25 36.8 C 117 H 18 133/84 BP Pulse Ox O2 Del Method O2 Flow Rate 06/15/22 15:15 96 Room Air 06/15/22 14:55 100 Room Air 06/15/22 15:05 97 Room Air 06/15/22 14:45 100 Oxymask 5 06/15/22 14:39 100 Oxymask 5 06/15/22 12:23 124/81 95 Room Air 06/15/22 08:15 99 Room Air 06/15/22 05:54 118/71 06/15/22 05:39 107/54 L 100 Room Air 06/14/22 23:45 Room Air 06/15/22 00:42 06/14/22 23:58 121/78 100 Room Air 06/14/22 22:20 06/14/22 22:10 06/14/22 22:06 06/14/22 22:06 06/14/22 21:40 97 06/14/22 22:01 98 Room Air 06/14/22 21:32 98 06/14/22 20:10 06/14/22 20:00 06/14/22 19:50 06/14/22 19:40 100 06/14/22 19:30 100 06/14/22 19:20 100 06/14/22 19:10 100 06/14/22 19:00 06/14/22 19:00 06/14/22 18:50 100 06/14/22 18:49 06/14/22 18:49 06/14/22 19:32 97 Room Air 06/14/22 18:50 149/92 H 100 Room Air 06/14/22 18:25 100 Room Air Pain Intensity Left Groin: Pain Intensity: 6 Transfer of Care Handoff Completed per policy Notes Mental Status: alert / awake / arousable Patient Amnestic to Procedure: Yes Nausea / Vomiting: adequately controlled Pain: adequately controlled Airway Patency, RR, SpO2: stable & adequate BP & HR: stable & adequate Hydration State: stable & adequate Anesthetic Complications: no major complications apparent
--- NOTE | 2022-06-15 15:31 | Operative Report (OR) ---
DATE OF OPERATION: 06/15/2022. NAME OF OPERATION: Incision and drainage of left groin abscess with culture and biopsy. PREOPERATIVE DIAGNOSIS: Necrotic lymph node with abscess. POSTOPERATIVE DIAGNOSIS: Necrotic lymph node with abscess. STAFF SURGEON: Nakul Tadeo MD. PHOTOGRAPHER APPRENTICE: Kat Gil PA-C. ANESTHESIA: General. DESCRIPTION OF PROCEDURE: The patient was brought in the operating room and placed on the operating table in supine position. Her left leg was flexed. Her left inguinal/groin area were prepped and dr aped. She did have cellulitis with peeling skin and severe induration. I was able to aspirate purul ent fluid deep. I anesthetized the tissue using 0.5% plain Marcaine, and then made an incision appro ximately 5-6 cm in length, encountering purulent fluid with a deep cavity, approximately 3 cm deep an d approximately 5 cm in diameter. Some of the tissue surrounding was sent for pathology. We did cul ture the fluid and then put some gentle ribbon gauze packing and a [place] drain, which was secured u sing 4-0 nylon suture, two sutures were placed in the middle of the incision using 3-0 nylon suture. Dressing applied. The patient was transferred to recovery room in stable condition. My assistant loan processor helped with prepping, draping and drainage of the abscess. Job ID: [id number]
[2022-06-15] MEDS ORDERED: HYDROmorphone INJ 0.5 MG/0.5 ML SYR IV PRN ×2 (17:11)
[2022-06-15] MEDS ORDERED: Nursing to Pharmacy Communication SCH (19:30)
[2022-06-15] MEDS ORDERED: DOCUSATE SODIUM 100 MG CAP PO ONE (21:45)
[2022-06-15] MEDS: cefTRIAXone SODIUM 2,000 MG/70 ML BAG IV SCH (22:12)
[2022-06-16] MEDS: KETOROLAC 30 MG/ML VIAL IV PRN ×4 (00:14→15:22)
[2022-06-16] MEDS: metroNIDAZOLE 500 MG/100 ML BAG IV SCH ×3 (03:01→19:18)
[2022-06-16] MEDS: VANCOMYCIN HCL 750 MG in SODIUM CHLORIDE 0.9% 250 ML IV SCH (04:10)
--- NOTE | 2022-06-16 08:03 | Surgery Progress Note ---
Date of Service June 16, 2022 Assessment & Plan (1) History of incision and drainage: Plan: Status post incision drainage and culture of left groin abscess I did try to biopsy some tissue as it did appear to be a necrotic lymph node on CAT scan Culture is obviously pending as well as sensitivities I did place an infectious disease consult I do believe the patient will require IV antibiotics for at least 1-2 more days until we have sensitivities She currently has a Zoe drain and some gauze-we will have the gauze removed and leave the Zoe drain Admission and Anticipated Discharge Date Admission Date: June 14, 2022 Results & Data ([facility]) Vital Signs (Past 12 Hours) Vital Signs Temp Pulse Resp BP Pulse Ox Pulse Ox O2 Del Method 06/16/22 02:55 36.9 C 80 18 111/60 98 Room Air 06/16/22 02:55 98 06/15/22 23:45 36.8 C 86 20 123/65 98 Room Air 06/15/22 23:45 98 O2 Del Method 06/16/22 02:55 06/16/22 02:55 Room Air 06/15/22 23:45 06/15/22 23:45 Room Air PG Care Time/CCT Total # of Minutes Spent Total Time Spent with Patient: Total time spent is greater than 50% in coordination of care (as documented) at patient's floor/unit and/or counseling patient: Coding Level of Care Code None Diagnoses History of incision and drainage Z98.890
[2022-06-16] MEDS: buPROPion XL 300 MG TABCR PO SCH (08:57)
[2022-06-16] MEDS: ENOXAPARIN INJ 40 MG/0.4 ML SYR SQ SCH (09:24)
[2022-06-16] MEDS: VYVANSE PO SCH (09:35)
[2022-06-16] MEDS: [UNRECOGNIZED DRUG - OTHER] PO SCH (09:35)
[2022-06-16 09:41] LABS: Creatinine Clr Calc Pharmacy 133.9 ml/min; Est GFR (African American) > 150.0 ml/min; Est GFR (Non-African American) 136.7 ml/min
--- NOTE | 2022-06-16 09:57 | Infectious Disease Consult ---
Date of Consultation June 16, 2022 Assessment & Plan (1) Abscess of left groin: Plan 21 yo F with no significant PMH who presented on 06/14 with worsening L groin pain since 06/05 despite several days of doxycycline for empiric treatment of possible LGV. She had been sexually active with a new partner on 05/30, but a chlamydia test was negative. She did report 3 small blisters in the L groin, which popped. Also reported routinely shaving in this area. She has a cat at home which frequently scratches her, but denied any recent overt wounds from her cat, or other lower extremity wounds. On presentation, she was afebrile with leukocytosis to 21.73, and was started on vanc, ceftriaxone, and metronidazole. A CT pelvis with contrast showed cellulitis of the L groin extending into the vulva and perineal soft tissues bilaterally, a necrotic lymph node in the L groin with 3.8 cm loculation of necrotic fluid/developing abscess, no perineal soft tissue gas, and myositis of the L adductor musculature. She was taken to the OR on 06/15--operative findings included purulent fluid with a deep cavity, ~3 cm deep and 5 cm in diameter. A biopsy of the lymph node was sent for pathology. Culture of the fluid is growing Group A Strep so far. Her case seems consistent with a bacterial adenitis caused by Strep pyogenes. LGV is unlikely with a negative Chlamydia test. Differential also includes cat scratch disease, although she denies recent lower extremity wound/bite from her cat. Other potential causes of lymphadenitis include tularemia, nocardiosis, sporotrichosis, toxoplasmosis. Micro: 06/15 L groin abscess cx: Group A Strep. GS: mod GPCs Antimicrobial course: Ceftriaxone 06/14 - present Vancomycin 06/14 - present Metronidazole 06/14 - present Problems: #Group A Strep inguinal lymphadenitis Recommendations: -Can continue vancomycin, ceftriaxone, and metronidazole for now, pending OR culture which is ~24 hours old -If OR culture only grows Group A Strep, anticipate transitioning to amoxicillin PO on discharge, if continued clinical improvement -Follow-up pathology of L inguinal lymph node -Follow-up HIV, RPR, HBV, HCV testing Will continue to follow Consultation Information Consultation was provided via telemedicine using two-way real-time interactive telecommunication between the patient and the telemedicine provider. For the duration of the visit, the provider was performing the assessment from a different facility than the patient. This includesuse of bluetooth stethoscope forauscultationperformed by the telepresenter that the telemedicine provider can hear if described in the physical exam. Flow Match Sofa Cutter contact information: Please call [facility] . (Phone Number For Physician Use Only) After establishing a telemedicine visit, patient was: Patient was verified with two unique identifiers, Patient/authorized rep acknowledged consent and understanding and Gave permission to continue telehealth session Time Spent with Patient: Initial => 40 min History of Present Illness Reason for Consultation: Groin infection Attending Physician: Rakel Mancera MD, PhD History of Present Illness 21 yo F with no significant PMH who began having L groin pain on 06/05, for which she was seen in clinic by OBGYN on 06/10. She had reported she was sexually active with a new partner on 05/30--she was unsure if protection was used. Subsequently, she noticed onset of L groin pain. She noted 3 small "blisters" in the L groin, which popped. She reports she routinely shaves in this area. Denies other ulcers or vesicles in the groin region. She was started on doxycycline 100 mg BID for 7 days for suspected LGV, but her symptoms became progressively worse, so she presented to the ED on 06/14. Per notes, she had a chlamydia test collected at her OBGYN appointment which was negative. She reports she has a cat at home, which frequently scratches her but she denies any recent overt wounds from the cat, or any other wounds on her lower extremities. She denies a prior history of STDs. Denies dysuria. On presentation, she was afebrile, with WBC 21.73. HIV, RPR, HBV and HCV testing were sent and are pending. A CT pelvis with contrast showed cellulitis of the L groin extending into the vulva and perineal soft tissues bilaterally, a necrotic lymph node in the L groin with 3.8 cm loculation of necrotic fluid/developing abscess, no perineal soft tissue gas, and myositis of the L adductor musculature. She was started on vancomycin, ceftriaxone, and metronidazole. General surgery was consulted for I&D. She was taken to the OR on 06/15. Operative findings included purulent fluid with a deep cavity, ~3 cm deep and 5 cm in diameter. A biopsy of the lymph node was sent for pathology. Culture of the fluid is growing Group A Strep. WBC downtrended to 17.1 yesterday. Today, pt reports the L groin pain is improved from prior. Allergies Allergy/AdvReac Type Severity Reaction Status Date / Time pollen extracts Allergy Sneezing Verified 06/15/22 00:03 Home Medications Medication Instructions Recorded Confirmed Type bupropion HCl 300 mg 24 hr tablet, 300 mg PO 1XD 06/15/22 06/15/22 History extended release lisdexamfetamine 20 mg capsule 20 mg PO 1XD 06/15/22 06/15/22 History (Vyvanse) Patient History Medical History (Updated 06/15/22 @ 07:24 by Chilango Daley DO) No pertinent family history No pertinent past medical history Surgical History (Updated 06/16/22 @ 09:12 by Brooke Robertson RN) History of incision and drainage (06/05/22) Incision and drainage of left groin abscess with culture and biopsy. No pertinent past surgical history Social History Smoking Status: Never smoker Second Hand Exposure: No; Do You Dip or Chew Tobacco: No; Hx Alcohol Use: No Hx Substance Use: No Preferred Language: [place] Communication Ability: Unable Radial Router Operator Required: No Beliefs That Will Affect Care: None Current Living Situation: Other Current Living Situation Comment: campus; 2 roommates. Other Information That Helps Us Care for You: No Feels Safe at Home: Yes Safety Concerns: Feels Safe At This Time Assistive Devices: None Review of System A complete ROS was performed and is negative except as mentioned in the HPI. Physical Exam Physical Exam: GEN: laying in bed in NAD. HEENT: Normocephalic, atraumatic. RESP: No increased work of breathing EXT: No LE edema. Warm, well-perfused. SKIN: L groin with incision and overlying gauze with some serosanguinous drainage, and surrounding erythema. Small ulcerated area superior to incision site with overlying white drainage. NEURO: Alert and oriented. Answers all questions appropriately. Speech not slurred. PSYCH: Normal mood, affect appropriate. Results & Data ([facility]) Vital Signs (Past 12 Hours) Vital Signs Temp Pulse Resp BP Pulse Ox Pulse Ox O2 Del Method 06/16/22 02:55 36.9 C 80 18 111/60 98 Room Air 06/16/22 02:55 98 06/15/22 23:45 36.8 C 86 20 123/65 98 Room Air 06/15/22 23:45 98 O2 Del Method 06/16/22 02:55 06/16/22 02:55 Room Air 06/15/22 23:45 06/15/22 23:45 Room Air Laboratory Results Laboratory Results - last 48 hr 06/14/22 06/14/22 06/14/22 19:08 19:08 21:59 WBC 21.73 H RBC 4.04 Hgb 12.3 Hct 37.3 MCV 92.3 MCH 30.4 MCHC 33.0 RDW Std Deviation 43.9 RDW Coeff of Jerardo 13.1 Plt Count 333 MPV 9.3 L Immature Gran % (Auto) 0.9 Neut % (Auto) 84.2 Lymph % (Auto) 8.0 [place] % (Auto) 5.8 Eos % (Auto) 0.7 Baso % (Auto) 0.4 Neut # (Auto) 18.32 H Lymph # (Auto) 1.74 [place] # (Auto) 1.25 H Eos # (Auto) 0.15 Baso # (Auto) 0.08 Immature Gran # (Auto) 0.19 H Sodium 139 Potassium 3.4 L Chloride 104 Carbon Dioxide 24 Anion Gap 11 BUN 9 Creatinine 0.63 Est Cr Clr Drug Dosing 112.7 Est GFR ( Amer) 149.7 Est GFR (Non-Af Amer) 129.1 BUN/Creatinine Ratio 14.3 Glucose 80 Calcium 9.5 Urine Test Random Vancomycin SARS-CoV-2, RNA, NAAT NEGATIVE 06/15/22 06/15/22 06/15/22 05:57 07:58 Unknown WBC 17.10 H RBC 3.40 L Hgb 10.5 L Hct 31.3 L MCV 92.1 MCH 30.9 MCHC 33.5 RDW Std Deviation 44.6 RDW Coeff of Jerardo 13.2 Plt Count 280 MPV 9.5 Immature Gran % (Auto) 1.3 Neut % (Auto) 80.8 Lymph % (Auto) 10.3 [place] % (Auto) 6.0 Eos % (Auto) 1.2 Baso % (Auto) 0.4 Neut # (Auto) 13.83 H Lymph # (Auto) 1.76 [place] # (Auto) 1.03 H Eos # (Auto) 0.20 Baso # (Auto) 0.06 Immature Gran # (Auto) 0.22 H Sodium Potassium Chloride Carbon Dioxide Anion Gap BUN Creatinine 0.54 L Est Cr Clr Drug Dosing 131.4 Est GFR ( Amer) > 150.0 Est GFR (Non-Af Amer) 135.8 BUN/Creatinine Ratio Glucose Calcium Urine Test Negative Random Vancomycin SARS-CoV-2, RNA, NAAT 06/16/22 06/16/22 09:04 09:04 WBC RBC Hgb Hct MCV MCH MCHC RDW Std Deviation RDW Coeff of Jerardo Plt Count MPV Immature Gran % (Auto) Neut % (Auto) Lymph % (Auto) [place] % (Auto) Eos % (Auto) Baso % (Auto) Neut # (Auto) Lymph # (Auto) [place] # (Auto) Eos # (Auto) Baso # (Auto) Immature Gran # (Auto) Sodium Potassium Chloride Carbon Dioxide Anion Gap BUN Creatinine 0.53 L Est Cr Clr Drug Dosing 133.9 Est GFR ( Amer) > 150.0 Est GFR (Non-Af Amer) 136.7 BUN/Creatinine Ratio Glucose Calcium Urine Test Random Vancomycin 10.5 SARS-CoV-2, RNA, NAAT Diagnostic Findings Pelvis CT 06/14/22 18:54 CT SCAN OF THE PELVIS WITH IV CONTRAST CLINICAL HISTORY: Pelvic infection. Assess for abscess. COMPARISON STUDY: No priors. TECHNIQUE: Following the IV administration of 87 cc of Optiray 350, CT scan of the pelvis is performed from the pelvic inlet to the proximal femora. Images are reviewed in the axial, sagittal, and coronal planes. IV contrast was administered without complication. A dose lowering technique was utilized adhering to the principles of ALARA. CT DOSE: 270.97 mGy.cm FINDINGS: The bladder, uterus, and adnexa are normal as visualized noting bilateral ovarian follicles. There is free fluid in the cul-de-sac. Imaged portions of the small bowel and colon are normal in caliber. Moderate fecal retention is noted throughout the imaged colon. A normal appendix is seen in the right lower quadrant. The iliac vessels are patent bilaterally. Prominent left pelvic sidewall and internal iliac chain nodes measure up to 1.0 cm in short axis. These are likely reactive. There is extensive soft tissue inflammation identified in the left groin with overlying dermal thickening. This is consistent with cellulitis. There is a hyperemic and necrotic lymph node in the left groin seen on image #513. The necrotic component/developing fluid collection measures 3.8 x 3.1 x 2.4 cm as seen on image #522. Additional prominent hyperemic lymph nodes are seen in the left groin. Inflammation extends into the perineum/vulva bilaterally (left greater than right). No deep perineal soft tissue gas is seen. The bony pelvis is intact. No lytic or blastic lesion is seen. The hips and sacroiliac joints are normal. There is myositis of the left adductor musculature. IMPRESSION: 1. Cellulitis of the left groin extending into the vulva and perineal soft tissues bilaterally. 2. There is a necrotic lymph node in the left groin with a 3.8 cm loculation of necrotic fluid/developing abscess. 3. Prominent left iliac chain and pelvic sidewall lymph nodes are likely reactive. 4. Free fluid in the cul-de-sac is likely within physiologic limits. 5. No perineal soft tissue gas is seen. 6. There is myositis of the left adductor musculature. ACT 112: Negative or not required by law. Electronically signed by: Werner Craft M.D. 06/14/2022 9:38 PM Medications Administered Current Inpatient Medications Acetaminophen (Acetaminophen 325 Mg Tab) 650 mg PO Q4H PRN PRN Reason: Pain or Fever Stop: 07/14/22 21:52 Last Admin: 06/15/22 19:37 Dose: 650 mg Bupropion HCl (Bupropion Xl 300 Mg Tabcr) 300 mg PO DAILY [facility] Stop: 07/15/22 08:59 Last Admin: 06/16/22 08:57 Dose: 300 mg Enoxaparin Sodium (Enoxaparin Inj 40 Mg/0.4 Ml Syr) 40 mg SQ QAM [facility] Stop: 07/16/22 08:59 Last Admin: 06/16/22 09:24 Dose: 40 mg Hydromorphone HCl (Hydromorphone Inj 0.5 Mg/0.5 Ml Syr) 0.25 mg IV Q3RWA PRN PRN Reason: Pain (1,2,3,4,5) Stop: 06/29/22 17:10 Hydromorphone HCl (Hydromorphone Inj 0.5 Mg/0.5 Ml Syr) 0.5 mg IV Q3HWA PRN PRN Reason: Pain (6,7,8,9,10) Stop: 06/29/22 17:10 Vancomycin HCl 750 mg/ Sodium (Chloride) 265 mls @ 200 mls/hr IV Q8H OPAL; Protocol Stop: 06/22/22 11:59 Last Infusion: 06/16/22 05:30 Dose: Infused Metronidazole (Flagyl) 500 mg in 100 mls @ 100 mls/hr IV Q8H OPAL Stop: 06/25/22 00:59 Last Infusion: 06/16/22 04:18 Dose: Infused Ceftriaxone Sodium (Rocephin) 2,000 mg in 70 mls @ 140 mls/hr IV HS OPAL; Protocol Stop: 06/25/22 20:59 Last Infusion: 06/15/22 22:42 Dose: Infused Ketorolac Tromethamine (Ketorolac 30 Mg/Ml Vial) 30 mg IV Q6H PRN PRN Reason: Pain Stop: 06/20/22 00:17 Last Admin: 06/16/22 08:54 Dose: 30 mg Lisdexamfetamine Dimesylate (Pt Own Med (Vyvanse) 20mg-Lisdexamfetamine Dimesylate) 1 each PO DAILY [facility] Stop: 07/16/22 08:59 Last Admin: 06/16/22 09:35 Dose: 1 each Lorazepam (Lorazepam 0.5 Mg Tab) 0.5 mg PO Q6H PRN PRN Reason: Anxiety/Insomnia Stop: 07/14/22 21:52 Magnesium Hydroxide (Magnesium Hydroxide Susp 30 Ml Udc) 30 ml PO BID [facility] Stop: 07/16/22 09:49 Miscellaneous Information (Vancomycin Consult Active) 1 each N/A UD PRN PRN Reason: Consult Stop: 07/14/22 21:52 Ondansetron HCl (Ondansetron Inj 2 Mg/Ml 2 Ml Vial) 4 mg IV Q6H PRN PRN Reason: Nausea And Vomiting Stop: 07/14/22 21:52 Oxycodone HCl (Oxycodone Hcl Ir 5 Mg Tab (Immediate Release)) 5 - 10 mg PO Q4HWA PRN PRN Reason: Pain Stop: 06/29/22 17:10 Senna/Docusate Sodium (Docusate Sodium/Senna 50/8.6mg Tab) 1 tab PO BID OPAL Stop: 07/16/22 09:49
[2022-06-16] MEDS ORDERED: VANCOMYCIN LEVEL ONE (10:00)
[2022-06-16] MEDS: MAGNESIUM HYDROXIDE SUSP 30 ML UDC PO SCH ×2 (10:15→22:16)
[2022-06-16] MEDS: DOCUSATE SODIUM/SENNA 50/8.6MG TAB PO SCH ×2 (10:15→22:16)
--- NOTE | 2022-06-16 11:07 | Pharmacy Report ---
Pharmacy PK ABX Note - Date of Service June 16, 2022 - Assessment and Plan Assessment 21 year old F receiving empiric vancomycin, ceftriaxone, and metronidazole for treatment of left groin abscess. I&D today w/ cultures from groin abscess showing Group A Strep. ID is consulted. Random level / came back 10.5 mcg/ml with AUC/KAYODE projected <400 mg/L.hr Hepatitis B/C and HIV testing pending. Day # 3 of antimicrobial therapy. Plan Vancomycin * Maintenance dose: 1000 mg IV every 8 hours * Regimen is predicted to achieve target AUC/KAYODE of 400-600 mg/L.hr Ceftriaxone * 2 g IV q24h - appropriate Metronidazole * 500 mg IV q8h - appropriate Pharmacy will continue to follow and will adjust dose/frequency as necessary. Thank you. Pharmacy has transitioned to AUC monitoring for vancomycin. AUC/KAYODE is the preferred PK/PD target and is associated with decreased risk of nephrotoxicity compared to traditional trough targets.
[2022-06-16] MEDS: VANCOMYCIN HCL 1,000 MG in SODIUM CHLORIDE 0.9% 250 ML IV SCH ×2 (12:27→20:21)
[2022-06-16] MEDS: oxyCODONE HCL IR 5 MG TAB (IMMEDIATE RELEASE) PO PRN ×2 (18:02→23:07)
[2022-06-16] MEDS: LACTATED RINGER'S 1,000 ML IV SCH ×2 (19:46→19:47)
[2022-06-16] MEDS: ONDANSETRON INJ 2 MG/ML 2 ML VIAL IV PRN (20:15)
[2022-06-16] MEDS: cefTRIAXone SODIUM 2,000 MG/70 ML BAG IV SCH (22:14)
[2022-06-17] MEDS: metroNIDAZOLE 500 MG/100 ML BAG IV SCH (03:01)
[2022-06-17] MEDS: VANCOMYCIN HCL 1,000 MG in SODIUM CHLORIDE 0.9% 250 ML IV SCH (04:13)
[2022-06-17] MEDS: ONDANSETRON INJ 2 MG/ML 2 ML VIAL IV PRN (05:59)
--- NOTE | 2022-06-17 07:42 | Surgery Progress Note ---
Date of Service June 17, 2022 Assessment & Plan (1) History of incision and drainage: Plan: Patient with severe infection in the left groin area Currently on triple antibiotics including vancomycin Appears to be growing out a strep but await sensitivities Patient will require dressing changes as an outpatient She is a student and I will give her a note for at least a week from school regarding tests and papers She will be followed in our office 2-3 times per week Will ask case management for other suggestions Admission and Anticipated Discharge Date Admission Date: June 14, 2022 Results & Data ([facility]) Vital Signs (Past 12 Hours) Vital Signs Temp Pulse Resp BP Pulse Ox O2 Del Method 06/16/22 23:05 37.1 C 88 14 120/71 99 Room Air PG Care Time/CCT Total # of Minutes Spent Total Time Spent with Patient: Total time spent is greater than 50% in coordination of care (as documented) at patient's floor/unit and/or counseling patient: Coding Level of Care Code None Diagnoses History of incision and drainage Z98.890
[2022-06-17] MEDS: buPROPion XL 300 MG TABCR PO SCH (08:55)
[2022-06-17] MEDS: ENOXAPARIN INJ 40 MG/0.4 ML SYR SQ SCH (08:55)
[2022-06-17] MEDS: DOCUSATE SODIUM/SENNA 50/8.6MG TAB PO SCH ×2 (08:56→20:04)
[2022-06-17] MEDS: MAGNESIUM HYDROXIDE SUSP 30 ML UDC PO SCH ×2 (08:57→20:10)
[2022-06-17] MEDS: VYVANSE PO SCH (09:30)
[2022-06-17] MEDS: [UNRECOGNIZED DRUG - OTHER] PO SCH (09:30)
[2022-06-17] MEDS: BACITRACIN OINT 15 GM TUBE EXT SCH ×2 (09:30→21:48)
[2022-06-17] MEDS: oxyCODONE HCL IR 5 MG TAB (IMMEDIATE RELEASE) PO PRN ×3 (09:31→20:10)
[2022-06-17 09:42] LABS: Creatinine Clr Calc Pharmacy 101.4 ml/min; Est GFR (African American) 144.6 ml/min; Est GFR (Non-African American) 124.7 ml/min
--- NOTE | 2022-06-17 09:56 | Infectious Disease Progress Nt ---
Date of Service June 17, 2022 Assessment & Plan (1) Abscess of left groin: Plan 21 yo F with no significant PMH who presented on 06/14 with worsening L groin pain since 06/05 despite several days of doxycycline for empiric treatment of possible LGV. She had been sexually active with a new partner on 05/30, but a chlamydia test was negative. She did report 3 small blisters in the L groin, which popped. Also reports routinely shaving in this area. She has a cat at home which frequently scratches her, but denied any recent overt wounds from her cat, or other lower extremity wounds. On presentation, she was afebrile with leukocytosis to 21.73, and was started on vanc, ceftriaxone, and metronidazole. A CT pelvis with contrast showed cellulitis of the L groin extending into the vulva and perineal soft tissues bilaterally, a necrotic lymph node in the L groin with 3.8 cm loculation of necrotic fluid/developing abscess, no perineal soft tissue gas, and myositis of the L adductor musculature. She was taken to the OR on 06/15--operative findings included purulent fluid with a deep cavity, ~3 cm deep and 5 cm in diameter. A biopsy of the lymph node was sent for pathology, but showed heavily inflamed adipose tissue and granulation tissue with focal necrosis. Culture of the fluid is growing Group A Strep so far. Her case seems consistent with a bacterial adenitis caused by Strep pyogenes. LGV is unlikely with a negative Chlamydia test. Differential also includes cat scratch disease, although she denies recent lower extremity wound/bite from her cat, and the OR culture is growing Group A Strep. Micro: 06/15 L groin abscess cx: Group A Strep. GS: mod GPCs 06/15 HIV screen: nonreactive 06/15 HBsAg: pending 06/15 HCV RNA: pending 06/14 RPR: pending Antimicrobial course: Ceftriaxone 06/14 - present Vancomycin 06/14 - 06/17 Metronidazole 06/14 - 06/17 Problems: #Group A Strep inguinal lymphadenitis Recommendations: -Discontinued vancomycin, metronidazole -Continues on ceftriaxone -No susceptibilities are being run on the Group A Strep, as there is not much known resistance. On discharge, can transition to amoxicillin 500 mg TID to complete a ~10 day course (06/15 - 06/24) (Please call/page for updated recs if additional organisms grow out from OR culture that are not susceptible to amoxicillin) -Follow-up RPR, HBV, HCV testing Will sign off. Please page [facility] with further questions. Admission and Anticipated Discharge Date Admission Date: June 14, 2022 Subjective Subsequent visit was provided via telemedicine using two-way real-time interactive telecommunication between the patient and the telemedicine provider. For the duration of the visit, the provider was performing the assessment from a different facility than the patient. This includesuse of [email or web address] ope forauscultationperformed by the telepresenter that the telemedicine provider can hear if described in the physical exam. [employer] contact information: Please call [facility] [phone]. (Phone Number For Physician Use Only) After establishing a telemedicine visit, patient was: Patient was verified with two unique identifiers, Patient/authorized rep acknowledged consent and understanding and Gave permission to continue telehealth session Time Spent with Patient: Subsequent => 25 min Pt reports some nausea OR abscess culture still only growing Group A Strep Review of System A complete ROS was performed and is negative except as mentioned in the HPI. Physical Exam Physical Exam: GEN: laying in bed in NAD. HEENT: Normocephalic, atraumatic. RESP: No increased work of breathing SKIN: L groin incision with some purulent drainage on dressing, surrounding erythema not extending beyond drawn borders NEURO: Alert and oriented. Answers all questions appropriately. Speech not slurred. PSYCH: Normal mood, affect appropriate. Results & Data ([facility]) Vital Signs (Past 12 Hours) Vital Signs Temp Pulse Resp BP Pulse Ox O2 Del Method 06/17/22 08:45 37.2 C 88 18 129/79 100 Room Air 06/16/22 23:05 37.1 C 88 14 120/71 99 Room Air Laboratory Results BMP 06/17/22 08:30 Creatinine 0.70 Diagnostic Findings 06/15/22 Pathology FINAL DIAGNOSIS Soft tissue, left groin, excision: - Heavily inflamed adipose tissue and granulation tissue with focal necrosis. at 1237. Clinical History Left groin abscess. Procedure performed: Incision and drainage left groin abscess with culture and biopsy. Gross Description LEFT GROIN TISSUE The specimen is received in a container labeled left groin tissue with the patient name. The specimen consists of multiple irregular fragments of dull pink and pale reddish, soft to rubbery tissue. In the aggregate the fragments measure 1 x 1 x 0.3 cm. The specimen is entirely submitted in a single cassette as A1. SH Medications Administered Current Inpatient Medications Acetaminophen (Acetaminophen 325 Mg Tab) 650 mg PO Q4H PRN PRN Reason: Pain or Fever Stop: 07/14/22 21:52 Last Admin: 06/15/22 19:37 Dose: 650 mg Bacitracin (Bacitracin Oint 15 Gm Tube) 1 appln EXT BID [facility] Stop: 07/17/22 08:59 Last Admin: 06/17/22 09:30 Dose: 1 appln Bupropion HCl (Bupropion Xl 300 Mg Tabcr) 300 mg PO DAILY [facility] Stop: 07/15/22 08:59 Last Admin: 06/17/22 08:55 Dose: 300 mg Enoxaparin Sodium (Enoxaparin Inj 40 Mg/0.4 Ml Syr) 40 mg SQ QAM [facility] Stop: 07/16/22 08:59 Last Admin: 06/17/22 08:55 Dose: 40 mg Hydromorphone HCl (Hydromorphone Inj 0.5 Mg/0.5 Ml Syr) 0.25 mg IV Q3RWA PRN PRN Reason: Pain (1,2,3,4,5) Stop: 06/29/22 17:10 Hydromorphone HCl (Hydromorphone Inj 0.5 Mg/0.5 Ml Syr) 0.5 mg IV Q3HWA PRN PRN Reason: Pain (6,7,8,9,10) Stop: 06/29/22 17:10 Metronidazole (Flagyl) 500 mg in 100 mls @ 100 mls/hr IV Q8H [facility] Stop: 06/25/22 00:59 Last Infusion: 06/17/22 04:14 Dose: Infused Ceftriaxone Sodium (Rocephin) 2,000 mg in 70 mls @ 140 mls/hr IV HS [facility]; Protocol Stop: 06/25/22 20:59 Last Infusion: 06/16/22 23:07 Dose: Infused Vancomycin HCl 1,000 mg/ (Sodium Chloride) 270 mls @ 200 mls/hr IV Q8H [facility]; Protocol Stop: 06/23/22 11:59 Last Infusion: 06/17/22 05:58 Dose: Infused Ketorolac Tromethamine (Ketorolac 30 Mg/Ml Vial) 30 mg IV Q6H PRN PRN Reason: Pain Stop: 06/20/22 00:17 Last Admin: 06/16/22 15:22 Dose: 30 mg Lisdexamfetamine Dimesylate (Pt Own Med (Vyvanse) 20mg-Lisdexamfetamine Dimesylate) 1 each PO DAILY [facility] Stop: 07/16/22 08:59 Last Admin: 06/17/22 09:30 Dose: 1 each Lorazepam (Lorazepam 0.5 Mg Tab) 0.5 mg PO Q6H PRN PRN Reason: Anxiety/Insomnia Stop: 07/14/22 21:52 Magnesium Hydroxide (Magnesium Hydroxide Susp 30 Ml Udc) 30 ml PO BID [facility] Stop: 07/16/22 09:49 Last Admin: 06/17/22 08:57 Dose: Not Given Miscellaneous Information (Vancomycin Consult Active) 1 each N/A UD PRN PRN Reason: Consult Stop: 07/14/22 21:52 Ondansetron HCl (Ondansetron Inj 2 Mg/Ml 2 Ml Vial) 4 mg IV Q6H PRN PRN Reason: Nausea And Vomiting Stop: 07/14/22 21:52 Last Admin: 06/17/22 05:59 Dose: 4 mg Oxycodone HCl (Oxycodone Hcl Ir 5 Mg Tab (Immediate Release)) 5 - 10 mg PO Q4HWA PRN PRN Reason: Pain Stop: 06/29/22 17:10 Last Admin: 06/17/22 09:31 Dose: 10 mg Senna/Docusate Sodium (Docusate Sodium/Senna 50/8.6mg Tab) 1 tab PO BID [facility] Stop: 07/16/22 09:49 Last Admin: 06/17/22 08:56 Dose: Not Given
[2022-06-17] MEDS: PIPERACILLIN/TAZOBACTAM 3.375 GM in DEXTROSE 5% 100 ML IV SCH ×2 (11:28→20:05)
[2022-06-17 12:17] LABS: HBSAG NON-REACTIVE (NON-REACTIVE); Hepatitis C Vira RNA (Log) PCR <1.18 NOT DETECTED Log IU/mL (NOT DETECTED); Hepatitis C Viral RNA by PCR <15 NOT DETECTED IU/mL (NOT DETECTED)
[2022-06-17] MEDS: ACETAMINOPHEN 325 MG TAB PO PRN ×2 (15:41→20:11)
[2022-06-18] MEDS: oxyCODONE HCL IR 5 MG TAB (IMMEDIATE RELEASE) PO PRN ×2 (00:30→06:26)
[2022-06-18] MEDS: PIPERACILLIN/TAZOBACTAM 3.375 GM in DEXTROSE 5% 100 ML IV SCH (03:30)
[2022-06-18 07:13] LABS: Est GFR (African American) 93.9 ml/min
[2022-06-18] MEDS: VYVANSE PO SCH (08:22)
[2022-06-18] MEDS: [UNRECOGNIZED DRUG - OTHER] PO SCH (08:22)
[2022-06-18] MEDS: DOCUSATE SODIUM/SENNA 50/8.6MG TAB PO SCH (08:23)
[2022-06-18] MEDS: ENOXAPARIN INJ 40 MG/0.4 ML SYR SQ SCH (08:23)
[2022-06-18] MEDS: BACITRACIN OINT 15 GM TUBE EXT SCH (08:23)
[2022-06-18] MEDS: buPROPion XL 300 MG TABCR PO SCH (08:23)
[2022-06-18] MEDS: MAGNESIUM HYDROXIDE SUSP 30 ML UDC PO SCH (08:24)
== END 2022-06-18 09:40 | disposition home or self-care (01) | DRG 989 ==
LOC: ED 18:22 → 4E1 21:53 → INTOOBSV 21:53 → 4E1 23:06 → PACUINP 06-15 14:32 → 4E1 06-15 17:09